=== PATIENT | female | born 1945 | race Caucasian/White ===

== ENCOUNTER → 2018-09-18 | Outpatient (CLI) | payer MEDICARE | END | disposition home or self-care (01) | LOC: PCVCCLINIC 15:58 | PROVIDERS: ATTEND Internal Medicine | DX: I25.10 Atherosclerotic heart disease of native coronary artery without angina pectoris (principal); R06.09 Other forms of dyspnea; E78.5 Hyperlipidemia, unspecified; J43.9 Emphysema, unspecified; I10 Essential (primary) hypertension; F17.210 Nicotine dependence, cigarettes, uncomplicated | CPT/HCPCS: 93005; G0463 ==

== ENCOUNTER → 2018-10-08 | Outpatient (CLI) | payer MEDICARE ==
[~2018-10-08] MED LIST: REGADENOSON 0.4 MG/5 ML DISP.SYRIN. IV ONE
--- NOTE | 2018-10-08 14:03 | PCVCIMAG ---
APPROVED REPORT Study performed: 10/08/2018 08:23:39 EXAM: Comprehensive 2D, Doppler, and color-flow Echocardiogram Patient Location: Echo lab Room #: 2Status: routine BSA: 1.76 HR: 80 bpmBP: 146/82 mmHg Rhythm: NSR Other Information Study Quality: Good Risk Factors: Cardiac Risk Factors: Hyperlipidemia Indications Dyspnea CAD 2D Dimensions IVSd: 7.71 (7-11mm)LVOT Diam: 19.78 (18-24mm) LVDd: 45.87 mm PWd: 7.20 (7-11mm)Ascending Ao: 31.08 (22-36mm) LVDs: 30.15 (25-40mm) Left Atrium: 38.81 (27-40mm) Aortic Root: 22.12 mm LV Single Plane 4CH: 51.68 % LV Single Plane 2CH: 69.88 % Biplane EF: 60.3 % Volumes Left Atrial Volume (Systole) Single Plane 4CH: 44.86 mLSingle Plane 2CH: 43.83 mL Biplane LA Volume: 47.00 mLLA ESV Index: 27.00 mL/m2 Aortic Valve AoV Peak Scott.: 1.30 m/s AO Peak Gr.: 6.78 mmHgLVOT Max P.94 mmHg LVOT Max V: 0.86 m/s HECTOR Vmax: 2.02 cm2 Mitral Valve E/A Ratio: 0.9 MV Decel. Time: 143.12 ms MV E Max Scott.: 0.82 m/s MV A Scott.: 0.95 m/s IVRT: 86.51 ms TDI E/Lateral E': 7.45E/Medial E': 5.13 Medial E' Scott.: 0.16 m/s Lateral E' Scott.: 0.11 m/s Pulmonary Valve PV Peak Scott.: 0.83 m/sPV Peak Gr.: 2.73 mmHg Pulmonary Vein P Vein S: 0.62 m/sP Vein A: 0.31 m/s P Vein D: 0.51 m/sP Vein A Dur.: 72.7 msec P Vein S/D Ratio: 1.22 Tricuspid Valve TR Peak Scott.: 2.82 m/s TR Peak Gr.: 31.80 mmHg TV Vmax: 0.53 m/sPA Pressure: 39.00 mmHg Left Ventricle The left ventricle is normal size. There is normal LV segmental wall motion. There is normal left ventricular wall thickness. Left ventricular systolic function is normal. The left ventricular ejection fraction is within the normal range. LVEF is 55-60%. The left ventricular diastolic function is normal. Right Ventricle The right ventricle is normal size. The right ventricular systolic function is normal. Atria The left atrium size is normal. The right atrium size is normal. Aortic Valve Aortic valve is trileaflet. No aortic regurgitation is present. There is no aortic valvular stenosis. Mitral Valve The mitral valve is normal in structure. There is no mitral valve regurgitation noted. No evidence of mitral valve stenosis. Tricuspid Valve The tricuspid valve is normal in structure. Mild tricuspid regurgitation with a PA pressure of 39 mmHg. Mild pulmonary hypertension. Pulmonic Valve The pulmonary valve is normal in structure. There is no pulmonic valvular regurgitation. Great Vessels The aortic root is normal in size. The ascending aorta is normal in size. Aortic arch is normal in caliber. IVC is normal in size and collapses >50% with inspiration. Pericardium There is no pericardial effusion. There is no pleural effusion. <Conclusion> Left ventricular systolic function is normal. There is normal LV segmental wall motion. LVEF is 55-60%. Normal diastolic function Aortic valve is trileaflet. No aortic regurgitation or stenosis. The mitral valve is normal in structure. No mitral valve regurgitation. Mild tricuspid regurgitation with a pulmonary artery pressure of 39 mmHg. There is no pericardial effusion.
--- NOTE | 2018-10-08 15:38 | PCVCIMAG ---
APPROVED REPORT Imaging Protocol: Rest Tc-99m/Stress Tc-99m 1 day Study performed: 10/08/2018 10:08:25 Indication: Dyspnea, Increased Calcium Score, CAD Patient Location: Out-Patient Stress Nurse: Charley Weeks RN RI Tech:Yan DIAMANTE Guajardo Ht: 5 ft 2 in Wt: 165 lbs BSA: 1.76 m2 HR: 78 bpm BP: 139/79 mmHg BMI: 30.1 Rhythm: Sinus Rhythm Medical History Medications: Amlodipine-Benazepril, Flexeril, Gabapentin, [place], ASA Allergies: No known drug allergies Cardiac Risk Factors: Age, Hyperlipidemia, Tobacco History (Current/Recent), CAD Pretest Chest Pain Characteristics: No chest pain Exercise History: Sedentary Physical Disabilities: SOA, Cough Resting Data Rest SPECT myocardial perfusion imaging was performed in supine position 45 minutes following the intravenous injection of 10.4 mCi of Tc-99m Sestamibi. Time of rest injection: 0940 Date: 10/08/2018 Administration Route: IV Administration Site: Right Hand Pharmacologic Stress Pharmacologic stress test was performed by injecting Regadenoson 0.4 mg IV push over 10-15 seconds immediately followed by the intravenous injection of 30.6 mCi of Tc-99m Sestamibi. Time of stress injection: 1100 Date: 10/08/2018 Administration Route: IV Administration Site: Right Hand Gated Stress SPECT was performed 45 minutes after stress injection. The images were gated to evaluate regional wall motion and calculate left ventricular ejection fraction. Stress Test Details Stress Test: Pharmacologic stress testing performed using 0.4 mg of regadenoson per 5 mL given IV over 10 seconds. Reason for pharmacologic stress test: SOA, Cough. HRMax Heart Rate (APMHR): 146 bpm Resting HR: 78 bpmTarget HR (85% APMHR): 124 bpm Max HR Achieved: 107 bpm % of APMHR: 73 Recovery HR: 99 bpm BP Resting BP: 139/79 mmHg Max BP: 142/81 mmHg Recovery BP: 150/73 mmHg ECG Resting ECG: Sinus Rhythm Stress ECG: Sinus Tachycardia ST Change: None Maximum ST Deviation: 0 mm Arrhythmia: PVCs Recovery ECG: Sinus Rhythm Recovery ST Change: None Recovery ST Deviation: 0 mm Recovery Arrhythmia: None Clinical Reason for Termination: Completed protocol Stress Symptoms: Dyspnea Exercise duration: 0 min 55 sec Symptoms resolved with caffeine. Stress ECG Conclusion ECG: Non-ischemic Clinical: Non-ischemic Study Quality Study: Good Study Data Post stress, the left ventricular ejection was 70%.. SSS: 0 SRS: 0 SDS: 0 TID = 1.03. Perfusion No evidence of stress induced ischemia or prior myocardial infarction. Wall Motion Normal left ventricular size and function with no regional wall motion abnormalities. Nuclear Conclusion No evidence of stress induced ischemia or prior myocardial infarction. Normal left ventricular size and function with no regional wall motion abnormalities. Post stress, the left ventricular ejection was 70%. No prior study available for comparison. Interpreted by: Shawn Mcmahan MD Electronically Approved: 10/08/2018 14:43:13 <Conclusion> ECG: Non-ischemic Clinical: Non-ischemic
== END | disposition home or self-care (01) ==
LOC: PCVCIMAG 08:21
PROVIDERS: ATTEND Internal Medicine
DX: I07.1 Rheumatic tricuspid insufficiency (principal); I25.10 Atherosclerotic heart disease of native coronary artery without angina pectoris; R06.09 Other forms of dyspnea; R07.9 Chest pain, unspecified; E78.5 Hyperlipidemia, unspecified; I27.20 Pulmonary hypertension, unspecified
CPT/HCPCS: 78452; 93017; 93306; A9500; J2785